=== PATIENT | male | born 1995 | race Two or more races ===

== ENCOUNTER 2021-02-20 17:16 | Emergency (ER) | payer BC ==
[~2021-02-20] VITALS: Ht 180.3 cm; Wt 113.6 kg
[2021-02-20 17:27] VITALS: BP 158/95
[2021-02-20] MEDS ORDERED: azithromycin 250mg tablet PO ONE (19:10)
[2021-02-20] MEDS ORDERED: CefTRIAXone 500MG IM Kit w/LIDOcaine IM ONE (19:10)
[2021-02-20] MEDS ORDERED: CefTRIAXone 250MG IM Kit w/LIDOcaine IM ONE (19:13)
== END 2021-02-20 19:48 | disposition home or self-care (01) ==
LOC: ER 17:17
DX: A64 Unspecified sexually transmitted disease (principal); R10.84 Generalized abdominal pain
CPT/HCPCS: 36415; 87491; 87591; 96372; 99283; J0696

== ENCOUNTER 2021-02-26 18:00 | Emergency (ER) | payer BC ==
[~2021-02-26] VITALS: Ht 180.3 cm; Wt 113.6 kg
[2021-02-26] MEDS ORDERED: ibuprofen tablet 400 MG TABLET PO ONE (22:25)
[2021-02-26] MEDS ORDERED: ibuprofen 200mg tablet PO ONE (22:35)
[2021-02-26 22:53] LABS: BASOPHILS % (AUTO) 0.4 % (0-1); EOSINOPHILS # (AUTO) 0.1 X10'3 (0-0.9); EOSINOPHILS % (AUTO) 0.8 % (0-6); HEMATOCRIT 43.2 % (42.0-52.0); LYMPHOCYTES % (AUTO) 28.7 % (21-51); MEAN CORPUSCULAR HEMOGLOBIN 30.7 PG (27.0-31.0); MEAN CORPUSCULAR HGB CONC 34.8 g/dL (33.0-36.5); MEAN CORPUSCULAR VOLUME 88.3 FL (78-98); MEAN PLATELET VOLUME 7.9 FL (7.4-10.4); MONOCYTES # (AUTO) 0.9 X10'3 (0-0.9); MONOCYTES % (AUTO) 8.8 % (2-12); NEUTROPHILS # (AUTO) 6.4 X10'3 (1.8-7.7); NEUTROPHILS % (AUTO) 61.3 % (42-75); PLATELET COUNT 320 X10'3 (140-440); RED CELL DISTRIBUTION WIDTH 12.9 % (11.5-14.5); WHITE BLOOD COUNT 10.5 X10'3 (4.5-11.0)
[2021-02-26 23:16] LABS: ALANINE AMINOTRANSFERASE 34 U/L (12-78); ALBUMIN 4.4 G/DL (3.4-5.0); ALBUMIN/GLOBULIN RATIO 1.1 (1.1-1.5); ALKALINE PHOSPHATASE 138 IU/L (46-116); ANION GAP 8 (8-16); ASPARTATE AMINO TRANSFERASE 13 U/L (10-37); BILIRUBIN,TOTAL 0.3 MG/DL (0.1-1.0); BLOOD UREA NITROGEN 20 MG/DL (7-18); BUN/CREATININE RATIO 18.5 (5.4-32.0); CALCIUM 9.2 MG/DL (8.5-10.1); CHLORIDE 105 MMOL/L (99-107); CREATININE 1.08 MG/DL (0.60-1.10); GLUCOSE 86 MG/DL (70-104); POTASSIUM 4.3 MMOL/L (3.5-5.1); SODIUM 142 MMOL/L (135-145); TOTAL CARBON DIOXIDE 29.5 MMOL/L (24-32); TOTAL PROTEIN 8.4 G/DL (6.4-8.2); eGFR 83 ML/MIN
[2021-02-26 23:23] LABS: D-DIMER < 0.19 MG/L FEU (0-0.50)
[2021-02-26 23:58] VITALS: BP 125/62
--- NOTE | 2021-02-27 | NUR ---
COVID SWAB NOT DONE PRIOR TO D/C. DR DEVIFS AWARE AND SAID IT WAS OK.
== END 2021-02-27 | disposition home or self-care (01) ==
LOC: ER 18:02
DX: R09.1 Pleurisy (principal); R06.02 Shortness of breath; R07.89 Other chest pain
CPT/HCPCS: 36415; 71045; 80053; 83880; 84484; 85025; 85379; 93005; 99285